=== PATIENT | female | born 1995 | race Caucasian/White ===

== ENCOUNTER 2016-11-08 06:59 | Emergency (ER) | payer BC ==
[2016-11-08] MEDS ORDERED: AMOXicillin 250 MG CAP ONE (07:29)
[2016-11-08] MEDS ORDERED: Dexamethasone 4 mg/ml Vial ONE (07:29)
== END 2016-11-08 07:42 | disposition home or self-care (01) ==
LOC: BURERS 06:59
DX: J20.9 Acute bronchitis, unspecified (principal); F17.210 Nicotine dependence, cigarettes, uncomplicated
CPT/HCPCS: 94640; J1100; J7620

== ENCOUNTER 2017-05-19 12:06 | Emergency (ER) | payer BC ==
[2017-05-19 13:54] LABS: Pregnancy Test - Urine (BHCG) Negative (Negative); Pregu Control Background? CLEAR/WHITE (CLR/WHITE); Pregu Control Bar Appear? YES (CONTROL BAR)
[2017-05-19 13:56] LABS: Bilirubin Negative (Negative); Blood, Urine Negative (Negative); Clarity Clear (Clear); Glucose, Urine (Dipstick) Negative (Negative); Leukocyte Negative (Negative); Nitrite Negative (Negative); Protein, Urine (Dipstick) Negative (Neg-Trace); Specific Gravity, Urine 1.015 (1.005-1.030); Urobilinogen 0.2 mg/dL (0.2-1.0); pH, Urine 7.5 (5.0-9.0)
[2017-05-19] MEDS ORDERED: cefTRIAXone\\ROCEPHIN 500 MG VIAL ONE (15:11)
[2017-05-19] MEDS ORDERED: Azithromycin 250 MG TAB ONE (15:11)
[2017-05-21 08:20] LABS: Chlamydia by PCR Not Detected (NotDetected); GC by PCR Not Detected (NotDetected)
== END 2017-05-19 15:34 | disposition home or self-care (01) ==
LOC: BURERS 12:06
DX: N73.9 Female pelvic inflammatory disease, unspecified (principal); J45.909 Unspecified asthma, uncomplicated; F17.210 Nicotine dependence, cigarettes, uncomplicated
CPT/HCPCS: 81003; 81025; 87480; 87491; 87510; 87591; 87660; 96372; J0696

== ENCOUNTER 2017-06-26 22:21 | Emergency (ER) | payer BC ==
--- NOTE | 2017-06-26 23:13 | RAD ---
CHEST TWO VIEWS 06/26/17 The heart is normal in size. The mediastinum shows no widening or shift. The trachea is midline. An S-shaped thoracolumbar scoliosis is present. The lungs are fully inflated and clear. No infiltrate o r effusion was detected. IMPRESSION: No acute thoracic findings. POS: HOME
[2017-06-26 23:26] LABS: #Basophils 0.2 thou/uL (0.0-0.2); #Eosinphils 0.1 thou/uL (0.0-0.7); #Lymphocytes 1.5 thou/uL (1.20-3.40); #Monocytes 0.9 thou/uL (0.11-0.59); #Neutrophils 10.7 thou/uL (1.40-6.50); %Basophils 1.1 % (0.0-1.0); %Lymphocytes 11.4 % (21.0-51.0); %Monocytes 6.6 % (0.0-10.0); %Neutrophils 79.9 % (42.0-75.0); Mean Corpuscular Hemoglobin 31.9 pg (27.0-31.0); Mean Platelet Volume 6.5 fL (7.4-10.4); Platelet Count 219 thou/uL (130-400); RBC Distribution Width 10.5 % (11.5-14.5); Red Blood Cell (RBC) Count 4.72 mill/uL (4.20-5.40); White Blood Cell (WBC) Count 13.3 thou/uL (4.8-10.8)
[2017-06-26 23:43] LABS: Bilirubin Negative (Negative); Blood, Urine Moderate (Negative); Clarity Cloudy (Clear); Glucose, Urine (Dipstick) Negative (Negative); Leukocyte Moderate (Negative); Nitrite Positive (Negative); Protein, Urine (Dipstick) 100 mg/dL (Neg-Trace); Urobilinogen 0.2 mg/dL (0.2-1.0); pH, Urine 5.5 (5.0-9.0)
[2017-06-26] MEDS ORDERED: Acetaminophen 500 MG TAB ONE (23:44)
[2017-06-26 23:45] LABS: Bacteria/HPF 3+ HPF (None Seen); Squamous Epithelial None Seen HPF (0-3)
[2017-06-26] MEDS ORDERED: Cephalexin 250 MG CAP ONE (23:54)
--- NOTE | 2017-06-26 23:55 | CT ---
CT OF THE BRAIN WITHOUT CONTRAST 06/26/2017 A small area of focal parenchymal hemorrhage is seen in the right frontal lobe that measures about 8 mm in size. It is probably subacute in age. No extraaxial hematoma was seen. The ventricles are normal in size and show no shift. There is normal galvan-white distinction. There is no sign of mass or stroke. The calvarium appears intact. No skull fractures were seen. The sphenoid sinus is clear as are the visible paranasal sinuses. The mastoid air cells on the right are under-aerated. IMPRESSION: An 8 mm right frontal parenchymal hemorrhage, most likely subacute in nature, consistent with the cl inical history. No findings strongly suggestive of a new acute event today. Findings discussed with Dr. Barrientos at [id number] on 06/26/2017. POS: HOME
[2017-06-27 00:02] LABS: ALT (SGPT) 21 U/L (8-55); AST (SGOT) 24 U/L (5-34); Albumin 4.2 g/dL (3.5-5.0); Alkaline Phosphatase 78 U/L (40-150); Anion Gap 17 mmol/L (10-20); BUN (Urea Nitrogen) 10 mg/dL (7.0-18.7); Bilirubin, Total 0.9 mg/dL (0.2-1.2); Calc. Creatinine Clearance 0 mL/min (70-130); Calcium 9.7 mg/dL (7.8-10.44); Carbon Dioxide 20 mmol/L (22-29); Chloride 104 mmol/L (98-107); Estimated GFR-MDRD 90; Globulin 3.3 g/dL (2.4-3.5); Glucose 89 mg/dL (70-105); Protein, Total 7.5 g/dL (6.0-8.3); Sodium 137 mmol/L (136-145)
== END 2017-06-27 00:10 | disposition home or self-care (01) ==
LOC: BURERS 22:21
DX: N39.0 Urinary tract infection, site not specified (principal); S01.81XD Laceration without foreign body of other part of head, subsequent encounter; F17.210 Nicotine dependence, cigarettes, uncomplicated; J45.909 Unspecified asthma, uncomplicated; Z79.899 Other long term (current) drug therapy
CPT/HCPCS: 36415; 70450; 71020; 80053; 81003; 81015; 85025; 87077; 87086; 87186

== ENCOUNTER 2017-09-21 16:01 | Emergency (ER) | payer BC | END 2017-09-21 16:34 | disposition home or self-care (01) | LOC: BURERS 16:01 | DX: G44.209 Tension-type headache, unspecified, not intractable (principal); F17.210 Nicotine dependence, cigarettes, uncomplicated; J45.909 Unspecified asthma, uncomplicated | CPT/HCPCS: 99283 ==

== ENCOUNTER 2017-12-09 12:50 | Emergency (ER) | payer BC | END 2017-12-09 13:52 | disposition home or self-care (01) | LOC: BURERS 12:50 | DX: J30.9 Allergic rhinitis, unspecified (principal); J45.909 Unspecified asthma, uncomplicated; F17.210 Nicotine dependence, cigarettes, uncomplicated | CPT/HCPCS: 99283 ==

== ENCOUNTER 2017-12-31 21:24 | Emergency (ER) | payer BC, SELFPAY ==
[2017-12-31 21:49] LABS: Bilirubin Small (Negative); Blood, Urine Negative (Negative); Glucose, Urine (Dipstick) Negative (Negative); Leukocyte Trace (Negative); Nitrite Negative (Negative); Protein, Urine (Dipstick) Negative (Neg-Trace); Specific Gravity, Urine 1.025 (1.005-1.030)
[2017-12-31 21:50] LABS: Clarity Hazy (Clear)
[2017-12-31 21:57] LABS: Bacteria/HPF 1+ HPF (None Seen); Other Microscopic Description RARE CLUE CELL; RBC/HPF 0-3 HPF (0-3)
[2017-12-31] MEDS ORDERED: traMADol HCl 50 MG TAB ONE (22:09)
[2017-12-31] MEDS ORDERED: Sulfameth/Trimethoprim DS 800-160mg TAB ONE (22:09)
== END 2017-12-31 22:15 | disposition home or self-care (01) ==
LOC: BURERS 21:24
DX: N39.0 Urinary tract infection, site not specified (principal); J45.909 Unspecified asthma, uncomplicated; F17.210 Nicotine dependence, cigarettes, uncomplicated; Z79.51 Long term (current) use of inhaled steroids; Z79.52 Long term (current) use of systemic steroids; Z79.899 Other long term (current) drug therapy
CPT/HCPCS: 81003; 81015; 99284

== ENCOUNTER 2018-03-13 22:13 | Emergency (ER) | payer SELFPAY ==
[2018-03-13 23:16] LABS: Bilirubin Negative (Negative); Blood, Urine Moderate (Negative); Clarity Hazy (Clear); Glucose, Urine (Dipstick) Negative (Negative); Leukocyte Negative (Negative); Nitrite Negative (Negative); Protein, Urine (Dipstick) Negative (Neg-Trace); Specific Gravity, Urine 1.025 (1.005-1.030); Urobilinogen 0.2 mg/dL (0.2-1.0); pH, Urine 5.5 (5.0-9.0)
[2018-03-13 23:30] LABS: Bacteria/HPF 1+ HPF (None Seen); Squamous Epithelial 0-3 HPF (0-3); WBC/HPF 0-3 HPF (0-3)
[2018-03-17 01:33] LABS: Chlamydia by PCR Not Detected (NotDetected); GC by PCR Not Detected (NotDetected)
== END 2018-03-13 23:34 | disposition home or self-care (01) ==
LOC: BURERS 22:13
DX: O20.0 Threatened abortion (principal); O99.411 Diseases of the circulatory system complicating pregnancy, first trimester; I34.1 Nonrheumatic mitral (valve) prolapse; O99.511 Diseases of the respiratory system complicating pregnancy, first trimester; J45.909 Unspecified asthma, uncomplicated; O99.331 Smoking (tobacco) complicating pregnancy, first trimester; Z3A.01 Less than 8 weeks gestation of pregnancy
CPT/HCPCS: 36415; 81003; 81015; 84702; 87480; 87491; 87510; 87591; 87660; 99284

== ENCOUNTER 2018-03-24 21:12 | Emergency (ER) | payer SELFPAY | END 2018-03-24 21:32 | disposition home or self-care (01) | LOC: BURERS 21:12 | DX: J01.90 Acute sinusitis, unspecified (principal); H60.91 Unspecified otitis externa, right ear; J45.909 Unspecified asthma, uncomplicated; F17.210 Nicotine dependence, cigarettes, uncomplicated | CPT/HCPCS: 99283 ==

== ENCOUNTER 2019-01-28 22:34 | Emergency (ER) | payer SELFPAY ==
[2019-01-28 23:24] LABS: Clarity Clear (Clear); Leukocyte Negative (Negative); Nitrite Negative (Negative); Pregnancy Test - Urine (BHCG) Negative (Negative); Pregu Control Background? CLEAR/WHITE (CLR/WHITE); Pregu Control Bar Appear? YES (CONTROL BAR); Protein, Urine (Dipstick) Negative (Neg-Trace); Specific Gravity 1.011 (1.002-1.036); Specific Gravity, Urine 1.015 (1.005-1.030)
[2019-01-28 23:25] LABS: Bilirubin Negative (Negative); Blood, Urine Negative (Negative); Glucose, Urine (Dipstick) Negative (Negative)
[2019-01-28] MEDS ORDERED: traMADol HCl 50 MG TAB ONE (23:37)
[2019-01-28] MEDS ORDERED: metroNIDAZOLE 250 MG TAB ONE (23:37)
[2019-02-02 00:59] LABS: Chlam.trachomatis by PCR,Urine Not Detected (NotDetected)
== END 2019-01-28 23:49 | disposition home or self-care (01) ==
LOC: BURERS 22:34
DX: N76.0 Acute vaginitis (principal); F17.210 Nicotine dependence, cigarettes, uncomplicated
CPT/HCPCS: 81003; 81025; 87491; 87591; 99284

== ENCOUNTER 2019-03-01 09:24 | Emergency (ER) | payer SELFPAY ==
[2019-03-01 10:02] LABS: #Basophils 0.1 thou/uL (0.0-0.2); #Eosinphils 0.2 thou/uL (0.0-0.7); #Lymphocytes 1.9 thou/uL (1.20-3.40); #Monocytes 0.6 thou/uL (0.11-0.59); #Neutrophils 5.7 thou/uL (1.40-6.50); %Basophils 0.8 % (0.0-1.0); %Eosinophils 2.8 % (0.0-10.0); %Lymphocytes 22.3 % (21.0-51.0); %Monocytes 6.5 % (0.0-10.0); %Neutrophils 67.6 % (42.0-75.0); Hemoglobin 14.1 g/dL (12.0-16.0); Mean Corpuscular HGB CONC 33.1 g/dL (32.0-36.0); Mean Corpuscular Hemoglobin 28.9 pg (27.0-31.0); Mean Corpuscular Volume 87.4 fL (78.0-98.0); Mean Platelet Volume 6.2 fL (7.4-10.4); Platelet Count 279 thou/uL (130-400); RBC Distribution Width 11.4 % (11.5-14.5); Red Blood Cell (RBC) Count 4.87 mill/uL (4.20-5.40); White Blood Cell (WBC) Count 8.5 thou/uL (4.8-10.8)
[2019-03-01 10:16] LABS: ALT (SGPT) 20 U/L (8-55); AST (SGOT) 15 U/L (5-34); Albumin 4.3 g/dL (3.5-5.0); Alkaline Phosphatase 58 U/L (40-150); Anion Gap 14 mmol/L (10-20); BUN (Urea Nitrogen) 12 mg/dL (7.0-18.7); Bilirubin, Total 0.5 mg/dL (0.2-1.2); Calc. Creatinine Clearance 0 mL/min (70-130); Calcium 9.7 mg/dL (7.8-10.44); Carbon Dioxide 18 mmol/L (22-29); Chloride 108 mmol/L (98-107); Estimated GFR-MDRD Greater than 90; Globulin 2.8 g/dL (2.4-3.5); Glucose 95 mg/dL (70-105); Potassium 4.1 mmol/L (3.5-5.1); Protein, Total 7.1 g/dL (6.0-8.3); Sodium 136 mmol/L (136-145)
[2019-03-01 10:33] LABS: Clarity Clear (Clear); Glucose, Urine (Dipstick) Negative (Negative); Leukocyte Negative (Negative); Nitrite Negative (Negative); Protein, Urine (Dipstick) Trace mg/dL (Neg-Trace)
[2019-03-01 10:34] LABS: Bilirubin Negative (Negative); Blood, Urine Negative (Negative)
== END 2019-03-01 10:50 | disposition short-term general hospital (02) ==
LOC: BURERS 09:24
DX: N93.9 Abnormal uterine and vaginal bleeding, unspecified (principal); J45.909 Unspecified asthma, uncomplicated; F17.210 Nicotine dependence, cigarettes, uncomplicated
CPT/HCPCS: 36415; 80053; 81003; 84702; 85025; 99284; A4353